=== PATIENT | male | born 1965 | race Caucasian/White ===

== ENCOUNTER 2018-03-15 09:15 | Emergency (ER) | payer SELFPAY ==
--- NOTE | 2018-03-15 10:55 | ED Physician Documentation ---
General Adult - HISTORIAN Historian: patient - HPI Stated Complaint: Struck by rolling gate at [employer] Chief Complaint: General Adult Additional Information: works [employer] where gate wheel ran over lt foot/ankle then gate pinnedhim to closure w/ pain also rt uopper forearm-has pain arm back and lt ankle. Onset: hours (2 hrs ago) Timing: still present, worse (back more sore stiff between shoulders) Severity: moderate Last known Well Code/Unknown Code: Known - ROS CONST: no problems EYES/ENT: none. denies: problems with vision CVS/RESP: denies: chest pain, shortness of breath, cough GI/: denies: abdominal pain, problems urinating, vomiting, nausea, diarrhea MS/SKIN/LYMPH: ankle swelling. denies: neck pain NEURO/PSYCH: difficulty walking. denies: headache, fainting, dizziness, tingling, numbness, difficulty with speech, anxiety, depression - PAST HX Past History: hypertension Surgeries/Procedures: cholecystectomy Allergies/Adverse Reactions: Allergies Allergy/AdvReac Type Severity Reaction Status Date / Time lisinopril AdvReac Cough Verified 03/15/18 10:47 Penicillins AdvReac Rash Verified 03/15/18 10:47 Home Medications: Ambulatory Orders Medication Instructions Recorded Losartan Potassium [Cozaar] 25 mg PO D 03/15/18 - SOCIAL HX Smoking History: non-smoker Alcohol Use: none Drug Use: none - FAMILY HX Family History: No - VITAL SIGNS Vital Signs: Vital Signs Temp Pulse Resp BP Pulse Ox 98.6 F 78 16 154/118 96 03/15/18 09:15 03/15/18 09:15 03/15/18 09:15 03/15/18 09:15 03/15/18 09:15 - REVIEWED ASSESSMENTS Nursing Assessment Reviewed: Yes Vitals Reviewed: Yes ED Results Lab/Radiology - Radiology Radiology Impressions: XRAY APPEARS NORMAL BUT RADSAYS POSSIBLE AVULSION FX. DUE TO PTS WORK RESIDENTIAL GUARE WE FELT NECESSARY TO VERIFY W/ CT=NORMAL General Adult Physical Exam - PHYSICAL EXAM GENERAL APPEARANCE: moderate distress EENT: eye inspection normal NECK: normal inspection, supple RESPIRATORY: chest non-tender, breath sounds normal. No: no resp distress, wheezes, rales, rhonchi CVS: reg rate & rhythm, heart sounds normal ABDOMEN: soft. No: tenderness BACK: CVA tenderness (R), CVA tenderness (L) (mid dorsal area--w/swelling upper fore arm rt and contusion l lower humerus) SKIN: warm/dry, normal color. No: cyanosis, diaphoresis, jaundice, mottled EXTREMITIES: tenderness NEURO: motor nml, sensation nml, mood/affect nml Discharge Clincal Impression: CRUSH INJURY SPRAINED LT ANKLE, RT AND LT FOREARM CONTUSIONSD Referrals: Primary Doctor,No [Primary Care Provider] - 2 Days Comments: MAY RTW TOMORROW UNLESS SY WORSEN OVERNOCT. PT SAYS PROGRESSIVE STIFFNESS EN TIREBODY SINCE INJURY-BUT WANTS TO RTW SANTA Condition: Stable Disposition: 01 HOME, SELF-CARE Decision to Admit: NO Decision Time: 19:20
[2018-03-15 18:02] VITALS: BP 148/84
--- NOTE | 2018-03-15 18:37 | Diagnostic Imaging Report ---
DA MENDOZA [facility] [address] [facility] [address] [address] Report Submission Date: Mar 15, 2018 12:02:05 PM CDT Patient Study Name: ELLEN WHIPPLE Date: Mar 15, 2018 11:17:04 AM CDT Modality Type: DX Gender: M Description: SPINE : 61 Institution: [facility] Physician: DA MENDOZA Thoracic spine History: Back pain after injury AP, lateral and swimmer's views of the thoracic spine were obtained which demonstrate very slight rightward curvature. Anterior and lateral marginal osteophytes are present at several levels of the mid and lower thoracic spine. There is mild multilevel disc space narrowing but vertebral body height is maintained. Impression: Slight rightward curvature. Degenerative findings of the thoracic spine as described. No acute osseous abnormalities are noted. Electronically signed on Mar 15, 2018 12:02:05 PM CDT by: Veronica HARMAN
--- NOTE | 2018-03-15 18:37 | Diagnostic Imaging Report ---
DA MENDOZA [facility] [address] [facility] [address] Report Submission Date: Mar 15, 2018 12:00:16 PM CDT Patient Study Name: ELLEN WHIPPLE Date: Mar 15, 2018 11:26:27 AM CDT Modality Type: DX Gender: M Description: LOWER EXTREMITY : 61 Institution: [facility] Physician: DA MENDOZA Left ankle History: Ankle injury Three views of the left ankle were obtained which demonstrate possibly a small lucency traversing the tip of the medial malleolus, perhaps a nondisplaced fracture at the tip of the medial malleolus. Otherwise, no acute osseous abnormalities are noted. Small dorsal and plantar calcaneal spurs are present. Impression: Small dorsal and plantar calcaneal spurs. Possible nondisplaced fracture at the very tip of the medial malleolus. Please correlate with site of pain. Electronically signed on Mar 15, 2018 12:00:16 PM CDT by: Veronica HARMAN
--- NOTE | 2018-03-15 18:38 | Diagnostic Imaging Report ---
DA MENDOZA [facility] [address] [facility].[address] [address] Report Submission Date: Mar 15, 2018 11:58:13 AM CDT Patient Study Name: ELLEN WHIPPLE Date: Mar 15, 2018 11:33:31 AM CDT Modality Type: DX Gender: M Description: UPPER EXTREMITY : 61 Institution: [facility] Physician: DA MENDOZA Right forearm History: Pain after injury AP and lateral projections of the right forearm demonstrate no osseous abnormality. Mineralization and alignment is normal. Impression: No osseous abnormality. Electronically signed on Mar 15, 2018 11:58:13 AM CDT by: Veronica HARMAN
--- NOTE | 2018-03-15 18:42 | Diagnostic Imaging Report ---
DA MENDOZA [facility] [address] [facility] [address] [place], [place]. [address] Report Submission Date: Mar 15, 2018 3:15:00 PM CDT Patient Study Name: ELLEN WHIPPLE Date: Mar 15, 2018 2:22:37 PM CDT Modality Type: CT Gender: M Description: CT LEG W/O CONTRAST : 61 Institution: [facility] Physician: DA MENDOZA CT left ankle without contrast History: CT LEFT ANKLE, PAIN IN LEFT ANKLE AFTER BEING PINNED BY GATE TODAY, POSSIBLE FX SEEN ON XRAY (Hx) / ITS.REASON PAIN/ INJURY. POSSIBLE NONDISPLACED FX - Multiple axial, images of the left ankle are submitted with coronal and sagittal reconstructions Comparison: Plain radiographs dated earlier the same day No definite evidence of acute fracture or dislocation left ankle. Degenerative changes are noted. Ankle mortise is intact. Calcaneal enthesophytes are present Bone island is seen in the calcaneum, no fracture fragment is identified. The partially visualized cuneiform bones, navicular appear within normal limits. Mild soft tissue swelling is noted at the ankle with fat stranding. The tendons appear intact Impression: 1. No obvious evidence of acute fracture or dislocation of left ankle. Ankle mortise is intact. Minimal soft tissue swelling/ small hematoma is noted anteriorly measuring approximately 9 mm with fat stranding 2. Bones are demineralized. Calcaneal enthesophytes are present 3. MRI evaluation may be done if there is concern for persistent soft tissue injury Electronically signed on Mar 15, 2018 3:15:00 PM CDT by: Mulu HARMAN
== END 2018-03-15 15:35 | disposition home or self-care (01) ==
LOC: ED 09:15
DX: S93.402A Sprain of unspecified ligament of left ankle, initial encounter (principal); S50.11XA Contusion of right forearm, initial encounter; S50.12XA Contusion of left forearm, initial encounter; W23.1XXA Caught, crushed, jammed, or pinched between stationary objects, initial encounter; Y92.148 Other place in prison as the place of occurrence of the external cause; Y93.9 Activity, unspecified; Y99.9 Unspecified external cause status; Z04.2 Encounter for examination and observation following work accident
CPT/HCPCS: 72072; 73090; 73610; 73700; 99284